=== PATIENT | female | born 1995 | race Caucasian/White ===

== ENCOUNTER 2018-06-20 16:28 | Emergency (ER) | payer BC ==
[2018-06-20 16:59] VITALS: BP 134/72
--- NOTE | 2018-06-20 17:14 | UC ---
UC General HPI - HPI Summary HPI Summary: NAUSEA PLUS VOMITING X2 AND SENSE OF NOT WELL YESTERDAY. NO ABDOMINAL PAIN, FEVER OR DIARRHEA. IMPROVED TODAY. DENIES ANY CHANCE OF . REQUESTING WORK EXCUSE. NO TRAVEL HX OR RECENT ANTIBIOTIC USE. - History of Current Complaint Chief Complaint: UCGeneralIllness Stated Complaint: UPSET STOMACH/VOMITING YESTERDAY Time Seen by Provider: 06/20/18 17:10 Hx Obtained From: Patient Hx Last Menstrual Period: 04/2018 on BCP, menses 4 X a year Pain Intensity: 0 Associated Signs & Symptoms: Negative: Abdominal Pain, Diarrhea, Fever - Allergy/Home Medications Allergies/Adverse Reactions: Allergies Allergy/AdvReac Type Severity Reaction Status Date / Time No Known Allergies Allergy Verified 06/20/18 16:59 Home Medications: Home Medications Control Pill 1 tab DAILY 06/20/18 [History Confirmed 06/20/18] PMH/Surg Hx/FS Hx/Imm Hx Previously Healthy: Yes - Surgical History Surgical History: Yes Surgery Procedure, Year, and Place: wisdom teeth - Family History Known Family History: Positive: Non-Contributory - Social History Occupation: Employed Part-time, Student Alcohol Use: Occasionally Substance Use Type: None Smoking Status (MU): Never Smoked Tobacco Review of Systems All Other Systems Reviewed And Are Negative: Yes Constitutional: Negative: Fever Gastrointestinal: Positive: Vomiting, Nausea. Negative: Abdominal Pain, Diarrhea Physical Exam Triage Information Reviewed: Yes Appearance: Well-Appearing Vital Signs: Initial Vital Signs Temp 98.0 F 06/20/18 16:54 Pulse 76 06/20/18 16:54 Resp 16 06/20/18 16:54 BP 134/72 06/20/18 16:54 Pulse Ox 100 06/20/18 16:54 Vital Signs Reviewed: Yes Eyes: Positive: Conjunctiva Clear ENT: Positive: Normal ENT inspection Neck: Positive: Supple, Nontender, No Lymphadenopathy Respiratory: Positive: Lungs clear, Normal breath sounds, No respiratory distress Cardiovascular: Positive: RRR, No Murmur Abdomen Description: Positive: Nontender, No Organomegaly, Soft. Negative: Distended, Guarding Bowel Sounds: Positive: Present Musculoskeletal: Positive: ROM Intact Neurological: Positive: Alert Psychological: Positive: Age Appropriate Behavior Skin Exam: Normal Course/Dx - Diagnoses Provider Diagnosis: Vomiting Discharge - Sign-Out/Discharge Documenting (check all that apply): Patient Departure All imaging exams completed and their final reports reviewed: No Studies - Discharge Plan Condition: Stable Disposition: HOME Patient Education Materials: Acute Nausea and Vomiting (ED) Forms: *Work Release Referrals: Vicki Carias MD [Primary Care Provider] - If Needed - Billing Disposition and Condition Condition: STABLE Disposition: Home - Attestation Statements Provider Attestation: Per institutional requirements, I have reviewed the chart, however, I was not consulted specifically or made aware of this patient by the midlevel provider. I did not personally evaluate, interact with , or disposition this patient.
== END 2018-06-20 17:25 | disposition home or self-care (01) ==
LOC: UCCORT 16:28
DX: R11.2 Nausea with vomiting, unspecified (principal); Z79.3 Long term (current) use of hormonal contraceptives
CPT/HCPCS: 99201; G0463

== ENCOUNTER 2018-07-05 17:12 | Emergency (ER) | payer BC ==
[2018-07-05 19:02] VITALS: BP 132/82
--- NOTE | 2018-07-05 19:42 | UC ---
Abdominal Pain Female HPI - HPI Summary HPI Summary: Pt presents with c/o sudden onset of nausea, malaise, abdominal discomfort, and diarrhea, X 1 day. Pt reports that she has known exposure to "GI bug". - History of Current Complaint Chief Complaint: UCGI Stated Complaint: BACK/ABD PAIN CHILLS/DIARRHEA Time Seen by Provider: 07/05/18 19:25 Hx Obtained From: Patient Hx Last Menstrual Period: BCP and has periods [id number] ?: No Onset/Duration: Sudden Onset, Lasting Days, Still Present Timing: Constant Severity Initially: Mild Severity Currently: Mild Pain Intensity: 4 Location: Diffuse Radiates: No Character: Colicy, Dull Aggravating Factor(s): Food Alleviating Factor(s): Nothing Associated Signs and Symptoms: Positive: Decreased Appetite, Nausea, Diarrhea - Risk Factors Ectopic Risk Factor: Negative Ovarian Torsion Risk Factor: Negative Allergies/Adverse Reactions: Allergies Allergy/AdvReac Type Severity Reaction Status Date / Time No Known Allergies Allergy Verified 06/20/18 16:59 PMH/Surg Hx/FS Hx/Imm Hx Previously Healthy: Yes - Surgical History Surgical History: Yes Surgery Procedure, Year, and Place: wisdom teeth - Family History Known Family History: Positive: Non-Contributory - Social History Occupation: Employed Part-time, Student Lives: With Family Alcohol Use: Occasionally Substance Use Type: None Smoking Status (MU): Never Smoked Tobacco Have You Smoked in the Last Year: No - Immunization History Vaccination Up to Date: Yes Review of Systems All Other Systems Reviewed And Are Negative: Yes Constitutional: Positive: Negative Skin: Positive: Negative Eyes: Positive: Negative ENT: Positive: Negative Respiratory: Positive: Negative Cardiovascular: Positive: Negative Gastrointestinal: Positive: Abdominal Pain, Diarrhea, Nausea Genitourinary: Positive: Negative Motor: Positive: Negative Neurovascular: Positive: Negative Musculoskeletal: Positive: Negative Neurological: Positive: Negative Psychological: Positive: Negative Is Patient Immunocompromised?: No Physical Exam Triage Information Reviewed: Yes Appearance: Ill-Appearing Vital Signs: Initial Vital Signs Temp 99.5 F 07/05/18 18:56 Pulse 99 07/05/18 18:56 Resp 16 07/05/18 18:56 BP 132/82 07/05/18 18:56 Pulse Ox 100 07/05/18 18:56 Vital Signs Reviewed: Yes Eye Exam: Normal ENT Exam: Normal Dental Exam: Normal Neck exam: Normal Respiratory Exam: Normal Cardiovascular Exam: Normal Abdomen Description: Positive: Nontender Musculoskeletal Exam: Normal Neurological Exam: Normal Psychological Exam: Normal Skin Exam: Normal Abd Pain Female Course/Dx - Differential Dx/Diagnosis Differential Diagnosis: Other - gastroenteritis Provider Diagnosis: Gastroenteritis Discharge - Sign-Out/Discharge Documenting (check all that apply): Patient Departure All imaging exams completed and their final reports reviewed: No Studies - Discharge Plan Condition: Stable Disposition: HOME Prescriptions: Ondansetron HCl [Zofran] 4 mg PO Q8H PRN #15 tablet PRN Reason: Nausea Patient Education Materials: Gastroenteritis (ED) Forms: *School Release, *Work Release Referrals: Vicki Carias MD [Primary Care Provider] - If Needed - Billing Disposition and Condition Condition: STABLE Disposition: Home
== END 2018-07-05 20:06 | disposition home or self-care (01) ==
LOC: UCCORT 17:12
DX: K52.9 Noninfective gastroenteritis and colitis, unspecified (principal)
CPT/HCPCS: 99212; G0463